=== PATIENT | female | born 1995 | race Caucasian/White ===

== ENCOUNTER 2017-01-29 05:04 | Emergency (ER) | payer MEDICAID ==
[~2017-01-29] VITALS: Ht 170.2 cm; Wt 68.2 kg
[2017-01-29 05:06] VITALS: BP 110/68; PULSE 82; RESP 20; TEMP 98.5; O2SAT 99
[2017-01-29] MEDS ORDERED: suboxone PO (05:14)
[2017-01-29] MEDS ORDERED: PROZ20CA11 PO (05:14)
[2017-01-29] MEDS ORDERED: VIST25CA PO (05:16)
[2017-01-29] MEDS ORDERED: birth control (05:16)
[2017-01-29] MEDS ORDERED: SUBO8MIS SL (05:16)
--- NOTE | 2017-01-29 05:34 | PD ---
HPI Chief Complaint: Anxiety Time Seen by Provider: 05:19 Travel History International Travel<30 days: No Contact w/Intl Traveler<30days: No Traveled to known affect area: No History of Present Illness HPI 21-year-old female complains of numbness tingling sensation of the bodies, anxious feeling and shortness of breath. Patient states that the symptoms started about 4 days ago. Patient denies any headache. Patient denies any visual change. Patient denies any chest pain. Patient states that she has feeling of heaviness in the chest with shortness of breath intermittently. Patient denies any coughing congestion fever chills. Patient denies abdominal pain. Patient denies any dysuria or frequency. Patient had an episode of urinary incontinence tonight. Patient was seen with personal physician 2 weeks ago and given prescription for Prozac. Patient was seen by personal physician several days ago and was given prescription for Vistaril which she has not started taking. Patient is on Suboxone now for past history of opiates abuse. Patient denies any illicit drug abuse or alcohol abuse. PFSH Past Medical History Anxiety: Yes Depression: Yes GERD: Yes Hepatitis: Yes (hep c) Tetanus Vaccination: > 5 Years Influenza Vaccination: No ?: Not LMP: 3 weeks ago Past Surgical History Other Surgery: Yes (dyana breast reduction) Social History Alcohol Use: No Tobacco Use: Yes Substance Use: No (quit 2.5yrs ago) Allergies-Medications Reported Meds & Prescriptions Reported Meds & Active Scripts Active Reported [ control] Vistaril (Hydroxyzine Pamoate) 25 Mg Cap 25 Mg PO Q4-6H PRN Suboxone Sublingual Film (Buprenorphine-Naloxone Sublingual Film) 8-2 Mg Film 1 Film SL BID Unique ID number required: Prozac (Fluoxetine HCl) 20 Mg Cap 20 Mg PO DAILY Review of Systems General / Constitutional: No: Fever Eyes: No: Visual changes HENT: No: Headaches Cardiovascular: Positive: Chest Pain or Discomfort Respiratory: Positive: Shortness of Breath Gastrointestinal: No: Abdominal Pain Genitourinary: No: Dysuria Musculoskeletal: No: Pain Skin: No Rash Neurologic: No: Weakness Psychiatric: No: Depression Endocrine: No: Polydipsia Hematologic/Lymphatic: No: Easy Bruising Physical Exam Narrative GENERAL: Well-nourished, well-developed patient. SKIN: Focused skin assessment warm/dry. HEAD: Normocephalic. EYES: No scleral icterus. No injection or drainage. NECK: Supple, trachea midline. No JVD or lymphadenopathy. CARDIOVASCULAR: Regular rate and rhythm without murmurs, gallops, or rubs. RESPIRATORY: Breath sounds equal bilaterally. No accessory muscle use. GASTROINTESTINAL: Abdomen soft, non-tender, nondistended. MUSCULOSKELETAL: No cyanosis, or edema. BACK: Nontender without obvious deformity. No CVA tenderness. Neurologic exam normal. Data Data Last Documented VS Vital Signs Date Time Temp Pulse Resp B/P (MAP) Pulse Ox O2 Delivery O2 Flow Rate FiO2 01/29/17 05:38 Room Air 01/29/17 05:06 98.5 82 20 110/68 (82) 99 Orders Orders Complete Blood Count With Diff (01/29/17 05:27) Comprehensive Metabolic Panel (01/29/17 05:27) Urinalysis - C+S If Indicated (01/29/17 05:27) Thyroid Stimulating Hormone (01/29/17 05:27) Iv Access Insert/Monitor (01/29/17 05:27) Ecg Monitoring (01/29/17 05:27) Oximetry (01/29/17 05:27) Ed Urine Pregnancytest Poc (01/29/17 05:27) Drug Screen, Random Urine (01/29/17 05:27) Electrocardiogram (01/29/17 ) Labs Laboratory Tests Test 01/29/17 05:31 White Blood Count 7.4 TH/MM3 Red Blood Count 4.29 MIL/MM3 Hemoglobin 12.0 GM/DL Hematocrit 35.8 % Mean Corpuscular Volume 83.6 FL Mean Corpuscular Hemoglobin 27.9 PG Mean Corpuscular Hemoglobin Concent 33.4 % Red Cell Distribution Width 14.0 % Platelet Count 154 TH/MM3 Mean Platelet Volume 9.9 FL Neutrophils (%) (Auto) 45.5 % Lymphocytes (%) (Auto) 39.0 % Monocytes (%) (Auto) 9.6 % Eosinophils (%) (Auto) 5.5 % Basophils (%) (Auto) 0.4 % Neutrophils # (Auto) 3.4 TH/MM3 Lymphocytes # (Auto) 2.9 TH/MM3 Monocytes # (Auto) 0.7 TH/MM3 Eosinophils # (Auto) 0.4 TH/MM3 Basophils # (Auto) 0.0 TH/MM3 CBC Comment DIFF FINAL Differential Comment Blood Urea Nitrogen 13 MG/DL Creatinine 0.68 MG/DL Random Glucose 90 MG/DL Total Protein 6.9 GM/DL Albumin 3.2 GM/DL Calcium Level 8.3 MG/DL Alkaline Phosphatase 68 U/L Aspartate Amino Transf (AST/SGOT) 27 U/L Alanine Aminotransferase (ALT/SGPT) 45 U/L Total Bilirubin 0.6 MG/DL Sodium Level 139 MEQ/L Potassium Level 3.4 MEQ/L Chloride Level 105 MEQ/L Carbon Dioxide Level 25.5 MEQ/L Anion Gap 9 MEQ/L Estimat Glomerular Filtration Rate 107 ML/MIN Thyroid Stimulating Hormone 3rd Gen 10.000 uIU/ML MDM Medical Decision Making Medical Screen Exam Complete: Yes Emergency Medical Condition: Yes Interpretation(s) 6:41 AM. CBC within normal limit. Potassium 3.4. Calcium 8.3. TSH 10.0. EKG shows sinus rhythm nonspecific ST-T wave change. Differential Diagnosis Differential diagnosis including anxiety panic attack, electrolyte abnormality, thyroid disease, substance-induced mood disorder. Narrative Course 21-year-old female with numbness and tingling sensation of the bodies, chest discomfort, shortness of breath. KCl 10 mEq by mouth given. Vistaril 25 mg by mouth given. Diagnosis Primary Impression: Anxiety Additional Impressions: Hypokalemia Hypothyroidism Qualified Codes: E03.9 - Hypothyroidism, unspecified Patient Instructions: General Instructions Additional Instructions: Vistaril as needed for anxiety. High potassium diet. Follow-up with personal physician for thyroid study and possible Synthroid. Med/Other Pt SpecificInfo: Prescription(s) given Disposition: DISCHARGE HOME Condition: Stable Arnol Garcia MD Jan 29, 2017 05:34
[2017-01-29 06:02] LABS: AUTOMATED NEUTROPHIL # 3.4 TH/MM3 (1.8-7.7); BASOPHIL % 0.4 % (0.0-2.0); EOSINOPHIL # 0.4 TH/MM3 (0-0.4); EOSINOPHIL % 5.5 % (0.0-4.0); HEMATOCRIT 35.8 % (35.0-46.0); HEMO FLAGS DIFF FINAL; LYMPHOCYTE # 2.9 TH/MM3 (1.0-4.8); MEAN CELL VOLUME 83.6 FL (80.0-100.0); MEAN CORPUSCULAR HEMOGLOBIN 27.9 PG (27.0-34.0); MEAN CORPUSCULAR HGB CONC 33.4 % (32.0-36.0); MONO % 9.6 % (0.0-8.0); NEUT % 45.5 % (16.0-70.0); PLATELET COUNT 154 TH/MM3 (150-450); RED BLOOD COUNT 4.29 MIL/MM3 (4.00-5.30); WHITE BLOOD COUNT 7.4 TH/MM3 (4.0-11.0)
[2017-01-29 06:29] LABS: ALT (GPT) 45 U/L (10-53); ANION GAP 9 MEQ/L (5-15); AST (GOT) 27 U/L (15-37); BICARBONATE 25.5 MEQ/L (21.0-32.0); BLOOD UREA NITROGEN 13 MG/DL (7-18); CHLORIDE 105 MEQ/L (98-107); GLOMERULAR FILTRATION RATE 107 ML/MIN (>89); POTASSIUM 3.4 MEQ/L (3.5-5.1); SODIUM (NA) 139 MEQ/L (136-145)
[2017-01-29 06:39] LABS: ALKALINE PHOSPHATASE 68 U/L (45-117); TOTAL BILIRUBIN ADULT 0.6 MG/DL (0.2-1.0)
[2017-01-29] MEDS ORDERED: hydrOXYzine PAMOATE 25 MG CAP PO ONE (07:00)
[2017-01-29] MEDS ORDERED: POTASSIUM CHLORIDE 10 MEQ CAP PO ONE (07:00)
--- NOTE | 2017-01-29 11:13 | EKG ---
Date Performed: 01/29/2017 Time Performed: 05:44:21 PTAGE: 21 years EKG: Sinus rhythm NORMAL ECG NO PREVIOUS TRACING DOCTOR: Kennedy Mary Interpretating Date/Time 01/29/2017 11:12:34
== END 2017-01-29 07:11 | disposition home or self-care (01) ==
LOC: NEPE 05:04
DX: F41.9 Anxiety disorder, unspecified (principal); E87.6 Hypokalemia; E03.9 Hypothyroidism, unspecified; R20.0 Anesthesia of skin; R06.02 Shortness of breath; F32.9 Major depressive disorder, single episode, unspecified; K21.9 Gastro-esophageal reflux disease without esophagitis; B19.20 Unspecified viral hepatitis C without hepatic coma; Z72.0 Tobacco use
CPT/HCPCS: 80053; 84443; 84703; 85025; 93005; 99284; Q0177